=== PATIENT | male | born 1985 | race Caucasian/White ===

== ENCOUNTER 2021-01-03 13:34 | Emergency (ER) | payer OTHER ==
[~2021-01-03] VITALS: Ht 177.8 cm; Wt 127.3 kg
[~2021-01-03 13:34] MED LIST: RISP2TAB45 PO
[2021-01-03] MEDS ORDERED: LAMO25TA25 PO (13:44)
[2021-01-03] MEDS ORDERED: OLAN5TAB94 PO (13:44)
[2021-01-03] MEDS ORDERED: CIPROFLOXACIN HCL 0.2%/HYDROCORT 1% 10 ML OTIC SUSPENSION AS ONE (15:15)
[2021-01-03] MEDS ORDERED: LAMO100 PO (15:21)
[2021-01-03 15:59] VITALS: BP 150/94
== END 2021-01-03 16:01 | disposition home or self-care (01) ==
LOC: EMS 13:34
DX: H60.92 Unspecified otitis externa, left ear (principal); F31.9 Bipolar disorder, unspecified; F17.210 Nicotine dependence, cigarettes, uncomplicated
CPT/HCPCS: 99283